=== PATIENT | female | born 1980 | race Caucasian/White ===

== ENCOUNTER 2019-04-07 07:52 | Emergency (ER) | payer OTHER ==
[~2019-04-07] VITALS: Ht 160 cm; Wt 95.3 kg
--- NOTE | 2019-04-07 08:08 | NUR ---
DR [facility] AT BEDSIDE FOR EVAL.
--- NOTE | 2019-04-07 08:10 | NUR ---
Patient discharged to home in stable conditon. Written and verbal after care instructions given. Patient verbalizes understanding of instructions.
[2019-04-07] MEDS ORDERED: diphenhydrAMINE 50 MG/1 ML VIAL IM ONE (08:15)
[2019-04-07] MEDS ORDERED: diphenhydrAMINE 50 MG/1 ML VIAL ONE (08:18)
== END 2019-04-07 08:45 | disposition home or self-care (01) ==
LOC: ER 07:52
DX: S50.862A Insect bite (nonvenomous) of left forearm, initial encounter (principal); S40.861A Insect bite (nonvenomous) of right upper arm, initial encounter; Z88.0 Allergy status to penicillin; W57.XXXA Bitten or stung by nonvenomous insect and other nonvenomous arthropods, initial encounter; Y93.89 Activity, other specified; Y92.89 Other specified places as the place of occurrence of the external cause; Y99.8 Other external cause status
CPT/HCPCS: 96372; 99283; J1200; A4663